=== PATIENT | female | born 1965 | race Caucasian/White ===

== ENCOUNTER 2016-09-12 18:38 | Emergency (ER) | payer OTHER, BC ==
[~2016-09-12] VITALS: Ht 160 cm; Wt 102.1 kg
[2016-09-12] MEDS ORDERED: ORPHENADRINE CITRATE 60 MG/2 ML VIAL. IM ONE (19:30)
[2016-09-12] MEDS ORDERED: PROMETHAZINE IM 25 MG/ML VIAL IM ONE (19:30)
[2016-09-12] MEDS ORDERED: HYDROMORPHONE 2 MG/ML VIAL. IM ONE (19:30)
[2016-09-12 19:52] VITALS: BP 173/75
--- NOTE | 2016-09-12 20:16 | PHYS DOC ---
Past Medical History Past Medical History: Asthma, GERD, Hypertension, Migraines Additional Past Medical Histor: BARRETTS ESOPHAGUS Past Surgical History: , Tubal ligation Additional Past Surgical Histo: HEART CATH Alcohol Use: None Drug Use: None Adult General Chief Complaint Chief Complaint: HEADACHE [facility] HPI Patient is a 51 year old female who presents with complaint of migraine. The patient has been seen and treated for similar headaches in the emergency department over the past few months. The patient states that she had been following with her neurologist at [facility] and had been receiving regular Botox injections to help with her headaches. Patient states however that her insurance has not been paying for her Botox injections in she has been having trouble with repeat headaches ever since. The patient is currently in process of transferring her care to Dr. Morris. Patient's headache started presents to 4 hours prior to arrival. Patient states that she is having nausea, right-sided headache and right-sided facial numbness which is typical of her migraines. Patient denies any other symptoms at this time. Patient's pain is 10 out of 10 currently. The patient took Zofran prior to arrival for nausea but has not taken any other medications. Review of Systems Review of Systems Constitutional: Denies fever or chills [] Eyes: Denies change in visual acuity, redness, or eye pain [] HENT: Denies nasal congestion or sore throat [] Respiratory: Denies cough or shortness of breath [] Cardiovascular: No additional information not addressed in HPI [] GI: Nausea, denies abdominal pain, bloody stools or diarrhea [] : Denies dysuria or hematuria [] Musculoskeletal: Denies back pain or joint pain [] Integument: Denies rash or skin lesions [] Neurologic: Headache, right-sided facial numbness [] Endocrine: Denies polyuria or polydipsia [] Current Medications Current Medications Current Medications Medications (Trade) Dose Ordered Sig/Lilibeth Start Time Stop Time Status Last Admin Dose Admin Hydromorphone HCl (Dilaudid) 2 mg 1X ONCE 09/12/16 19:30 09/12/16 19:31 DC 09/12/16 19:40 2 MG Orphenadrine Citrate (Norflex) 60 mg 1X ONCE 09/12/16 19:30 09/12/16 19:31 DC 09/12/16 19:40 60 MG Promethazine HCl (Phenergan Im) 25 mg 1X ONCE 09/12/16 19:30 09/12/16 19:31 DC 09/12/16 19:40 25 MG Allergies Allergies Allergies Coded Allergies Type Severity Reaction Last Updated Verified Iodinated Contrast Media - Oral and Allergy Intermediate LISTED "IV DYE" 09/12/16 Yes butorphanol Allergy Intermediate HIVES 06/14/16 Yes ketorolac Allergy Intermediate HIVES 06/14/16 Yes morphine Allergy Intermediate 09/12/16 Yes naproxen Allergy Intermediate HIVES 06/14/16 Yes Physical Exam Physical Exam Constitutional: Alert, afebrile, appears in moderate to severe discomfort. [] HENT: Normocephalic, atraumatic, bilateral external ears normal, oropharynx moist, no oral exudates, nose normal. [] Eyes: PERRLA, EOMI, conjunctiva normal, no discharge. [] Neck: Normal range of motion, no tenderness, supple, no stridor. [] Cardiovascular:Heart rate regular rhythm, no murmur [] Lungs & Thorax: Bilateral breath sounds clear to auscultation [] Abdomen: Bowel sounds normal, soft, no tenderness, no masses, no pulsatile masses. [] Skin: Warm, dry, no erythema, no rash. [] Back: No tenderness, no CVA tenderness. [] Extremities: No tenderness, no cyanosis, no clubbing, ROM intact, no edema. [] Neurologic: Alert and oriented X 3, normal motor function, normal sensory function, no focal deficits noted. [] Current Patient Data Vital Signs Vital Signs Date Time Temp Pulse Resp B/P Pulse Ox O2 Delivery O2 Flow Rate FiO2 09/12/16 19:52 96 18 173/75 99 Room Air 09/12/16 19:48 97.2 97.2 EKG EKG Not performed [] Radiology/Procedures Radiology/Procedures Not performed [] Course & Med Decision Making Course & Med Decision Making Pertinent Labs and Imaging studies reviewed. (See chart for details) I seen this patient on previous visits that her symptoms are typical of her exacerbations. The patient was given IM Dilaudid, Phenergan, and Norflex in the emergency department. On reevaluation, patient states that her pain is improving at this time and she would like to go home. The patient will be driven home by her . Advised patient to continue on her home medications to help with symptoms and follow-up closely with her primary doctor in 2-3 days. Advised return to emergency department for any worsening symptoms. Patient voiced understanding and in agreement with treatment plan. Dragon Disclaimer Dragon Disclaimer This electronic medical record was generated, in whole or in part, using a voice recognition dictation system. Departure Departure Impression: Primary Impression: Migraine Disposition: HOME, SELF-CARE Condition: IMPROVED Referrals: NON,STAFF (PCP) Patient Instructions: Migraine Headache Additional Instructions: Follow-up with your primary doctor in the next 2-3 days. Return to the emergency department for any worsening symptoms. Problem Qualifiers Primary Impression: Migraine Migraine type: periodic headache syndrome Intractability: not intractable Qualified Code: G43.C0 - Periodic headache syndromes in child or adult, not intractable SALUD CHILDS MD Sep 12, 2016 20:16
== END 2016-09-12 20:22 | disposition home or self-care (01) ==
LOC: ER 18:38
DX: G43.909 Migraine, unspecified, not intractable, without status migrainosus (principal); I10 Essential (primary) hypertension; J45.909 Unspecified asthma, uncomplicated; Z88.5 Allergy status to narcotic agent; Z88.8 Allergy status to other drugs, medicaments and biological substances; Z91.041 Radiographic dye allergy status
CPT/HCPCS: 96372; 99284; J1170; J2360; J2550

== ENCOUNTER 2016-11-03 18:08 | Emergency (ER) | payer OTHER, BC ==
[~2016-11-03] VITALS: Ht 160 cm; Wt 99.8 kg
[2016-11-03] MEDS ORDERED: PROCHLORPERAZINE 10 MG/2 ML VIAL. IV ONE (19:00)
[2016-11-03] MEDS ORDERED: DEXAMETHASONE SOD PHOS 4 MG/ML VIAL IV ONE (19:00)
[2016-11-03] MEDS ORDERED: DIPHENHYDRAMINE 50 MG/ML VIAL IVP ONE ×2 (19:00→20:30)
[2016-11-03] MEDS ORDERED: IV NORMAL SALINE 1000ML BAG 1,000 ML IV ONE (19:00)
[2016-11-03] MEDS ORDERED: LIDOCAINE 1% PF 2 ML VIAL. NEB ONE (19:00)
[2016-11-03] MEDS ORDERED: LORAZEPAM 2 MG/ML VIAL IV ONE (20:45)
[2016-11-03 21:02] VITALS: BP 182/88
[2016-11-03] MEDS ORDERED: BUTA1CAP29 PO (21:31)
--- NOTE | 2016-11-04 | ED.ADGEN ---
Past Medical History Past Medical History: GERD, Migraines Additional Past Medical Histor: BARRETTS ESOPHAGUS Past Surgical History: Appendectomy, Tonsillectomy, Tubal ligation Additional Past Surgical Histo: HEART CATH Alcohol Use: None Drug Use: None Adult General Chief Complaint Chief Complaint: HEADACHE HPI HPI Patient is a 51 year old woman, history of migraine headaches which have been previously treated with Botox, Diallo's esophagus and GERD, who presents to the emergency department with complaint of an exacerbation of her typical migraine headache. Patient states that she is currently switching providers, and is appointed to follow-up with her new neurologist in 2 and half weeks for additional Botox injections. She states that she does have medications at home that she takes to try to stave off her headaches, but she waited too long to take medication today. She is complaining of headache, nausea and facial numbness, which she states is consistent with her typical migraine symptoms. She denies any injuries, any vision changes, any weakness emesis or tingling, any fevers, chills, respiratory lower story symptoms or other deviations of her typical migraine type pain. Review of Systems Review of Systems Constitutional: Denies fever or chills. [] Eyes: Denies change in visual acuity. [] HENT: Denies nasal congestion or sore throat. [] Respiratory: Denies cough or shortness of breath. [] Cardiovascular: Denies chest pain or edema. [] GI: Denies abdominal pain, vomiting, bloody stools or diarrhea. [] Nausea. : Denies dysuria. [] Musculoskeletal: Denies back pain or joint pain. [] Integument: Denies rash. [] Neurologic: Denies focal weakness. [Migraine headache, with facial numbness. Recurrent.] Endocrine: Denies polyuria or polydipsia. [] Lymphatic: Denies swollen glands. [] Psychiatric: Denies depression or anxiety. [] Current Medications Current Medications Current Medications Medications (Trade) Dose Ordered Sig/Lilibeth Start Time Stop Time Status Last Admin Dose Admin Dexamethasone Sodium Phosphate (Decadron) 4 mg 1X ONCE 11/03/16 19:00 11/03/16 19:01 DC 11/03/16 19:55 4 MG Diphenhydramine HCl (Benadryl) 25 mg 1X ONCE 11/03/16 20:30 11/03/16 20:31 DC 11/03/16 20:20 25 MG Lidocaine HCl (Xylocaine-Mpf 1% Vial) 1 ml 1X ONCE 11/03/16 19:00 11/03/16 19:01 DC 11/03/16 19:24 1 ML Lorazepam (Ativan) 1 mg 1X ONCE 11/03/16 20:45 11/03/16 20:46 DC 11/03/16 20:47 1 MG Prochlorperazine Edisylate (Compazine) 10 mg 1X ONCE 11/03/16 19:00 11/03/16 19:01 DC 11/03/16 19:58 10 MG Sodium Chloride (Iv Sodium Chloride 0.9% 1000ml Bag) 1,000 ml @ 1,000 mls/hr 1X ONCE 11/03/16 19:00 11/03/16 19:59 DC Allergies Allergies Allergies Coded Allergies Type Severity Reaction Last Updated Verified Iodinated Contrast Media - Oral and Allergy Intermediate LISTED "IV DYE" Yes butorphanol Allergy Intermediate HIVES 11/03/16 Yes dexamethasone Allergy Intermediate ANXIETY 11/03/16 Yes ketorolac Allergy Intermediate HIVES 11/03/16 Yes morphine Allergy Intermediate 11/03/16 Yes naproxen Allergy Intermediate HIVES 11/03/16 Yes Physical Exam Physical Exam Constitutional: Well developed, well nourished, no acute distress, non-toxic appearance. [] HENT: Normocephalic, atraumatic, bilateral external ears normal, oropharynx moist, no oral exudates, nose normal. [] Eyes: PERRLA, EOMI, conjunctiva normal, no discharge. [] Neck: Normal range of motion, no tenderness, supple, no stridor. [] Cardiovascular:Heart rate regular rhythm, no murmur on S1, S2, rubs or gallops. [] Lungs & Thorax: Bilateral breath sounds clear to auscultation, no wheezing, rhonchi, rales. No chest tenderness or crepitus. [] Abdomen: Bowel sounds normal, soft, no tenderness, no masses, no pulsatile masses. [] Skin: Warm, dry, no erythema, no rash. [] Back: No tenderness, no CVA tenderness. [] Extremities: No tenderness, no cyanosis, no clubbing, ROM intact, no edema. [] Neurologic: Alert and oriented X 3, normal motor function, normal sensory function, no focal deficits noted. [] Psychologic: Affect normal, judgement normal, mood normal. [] Current Patient Data Vital Signs Vital Signs Date Time Temp Pulse Resp B/P Pulse Ox O2 Delivery O2 Flow Rate FiO2 11/03/16 21:02 86 182/88 96 Room Air 11/03/16 18:15 97.5 20 97.5 EKG EKG Not indicated. Radiology/Procedures Radiology/Procedures Not indicated. [] Course & Med Decision Making Course & Med Decision Making Pertinent Labs and Imaging studies reviewed. (See chart for details) Patient's examination is neurologically intact, she denies any changes from her baseline migraine headaches. Patient states that she usually receives hydromorphone injections for her headaches, along with Norflex. Discussed with the patient that narcotics are generally not recommended according to the neurology guidelines for treatment of migraine. I recommend that we begin with IV fluids, Compazine, Benadryl, nebulized lidocaine, and Decadron, for potential prevention and recurrence of headaches. She declined IV fluids, was agreeable with the rest of the plan. Unfortunately, it did take several attempts in order to establish IV access. Patient did receive the other medications, and began to complain of feeling anxious, and jittery, which she states believes may have happened one time previously when she was given Decadron. She is given an additional dose of Benadryl, and then a dose of Ativan , as her agitation was significant, and had begun to experience hypertension with this as well. On reevaluation, patient states that her headache is now a 2 out of 10, with a 4 being tolerable for her. Blood pressure and heart rate are improved, and she's had resolution of her nausea and anxiety. Did discuss with her the importance of following up with her neurologist, she was given a prescription for Fioricet, medication instructions and precautions, to use for her migraine headache, also given clear and detailed return instructions with which she voiced understanding and agreement. Patient was discharged home in stable condition with family with plan as above. Dragon Disclaimer Dragon Disclaimer This electronic medical record was generated, in whole or in part, using a voice recognition dictation system. Departure Impression: Primary Impression: Migraine Disposition: 01 HOME, SELF-CARE Condition: IMPROVED Scripts Butalb/Acetaminophen/Caffeine (Fioricet 50-300-40 Mg Capsule)1 Each Capsule1 Each PO PRN Q4HRS PRN MIGRAINE HEADACHE #12 CAP Prov:MANE HUSSEIN DO 11/03/16 MANE HUSSEIN DO Nov 04, 2016 00:00
== END 2016-11-03 21:37 | disposition home or self-care (01) ==
LOC: ER 18:08
DX: G43.909 Migraine, unspecified, not intractable, without status migrainosus (principal); Z88.5 Allergy status to narcotic agent; Z88.8 Allergy status to other drugs, medicaments and biological substances; Z91.041 Radiographic dye allergy status
CPT/HCPCS: 94640; 96374; 96375; 99284; J0780; J1100; J1200; J2060

== ENCOUNTER 2016-12-06 18:31 | Emergency (ER) | payer OTHER, BC ==
[~2016-12-06] VITALS: Ht 160 cm; Wt 99.8 kg
[~2016-12-06 18:31] MED LIST: BUTA1CAP29 PO
[2016-12-06 18:35] VITALS: BP 184/94
[2016-12-06] MEDS ORDERED: ORPHENADRINE CITRATE 60 MG/2 ML VIAL. IM ONE (19:00)
[2016-12-06] MEDS ORDERED: PROMETHAZINE IM 25 MG/ML VIAL IM ONE (19:00)
[2016-12-06] MEDS ORDERED: DIPHENHYDRAMINE HCL 25 MG CAPSULE PO ONE (19:00)
--- NOTE | 2016-12-06 19:06 | PHYS DOC ---
Past Medical History Past Medical History: GERD, Migraines Additional Past Medical Histor: BARRETTS ESOPHAGUS Past Surgical History: Appendectomy, Tonsillectomy, Tubal ligation Additional Past Surgical Histo: HEART CATH Alcohol Use: None Drug Use: None Adult General Chief Complaint Chief Complaint: HEADACHE HPI HPI Patient is a 51 year old female who presents with headache over the past 3 hours, gradual in onset, constant, associated with right facial numbness, exactly like prior migraines. Also states she has some bilateral ear and nasal congestion recently. Denies nausea or vomiting, photophobia, phonophobia , vision changes, dizziness, rhinorrhea, sneezing, fever or chills, tingling, weakness. States combination of phenergan, norflex, and dilaudid resolves her symptoms. Review of Systems Review of Systems Constitutional: Denies fever or chills [] Eyes: Denies change in visual acuity, redness, or eye pain [] HENT: Denies nasal congestion or sore throat [] Respiratory: Denies cough or shortness of breath [] Cardiovascular: No additional information not addressed in HPI [] GI: Denies abdominal pain, nausea, vomiting, bloody stools or diarrhea [] : Denies dysuria or hematuria [] Musculoskeletal: Denies back pain or joint pain [] Integument: Denies rash or skin lesions [] Neurologic: Denies focal weakness [] Endocrine: Denies polyuria or polydipsia [] Current Medications Current Medications Current Medications Medications (Trade) Dose Ordered Sig/Lilibeth Start Time Stop Time Status Last Admin Dose Admin Diphenhydramine HCl (Benadryl) 25 mg 1X ONCE 12/06/16 19:00 12/06/16 19:01 DC 12/06/16 19:06 25 MG Orphenadrine Citrate (Norflex) 60 mg 1X ONCE 12/06/16 19:00 12/06/16 19:01 DC 12/06/16 19:06 60 MG Promethazine HCl (Phenergan Im) 25 mg 1X ONCE 12/06/16 19:00 12/06/16 19:01 DC 12/06/16 19:06 25 MG Allergies Allergies Allergies Coded Allergies Type Severity Reaction Last Updated Verified Iodinated Contrast Media - Oral and Allergy Intermediate LISTED "IV DYE" Yes butorphanol Allergy Intermediate HIVES 11/03/16 Yes dexamethasone Allergy Intermediate ANXIETY 11/03/16 Yes ketorolac Allergy Intermediate HIVES 11/03/16 Yes morphine Allergy Intermediate 11/03/16 Yes naproxen Allergy Intermediate HIVES 11/03/16 Yes Physical Exam Physical Exam Constitutional: Well developed, well nourished, no acute distress, non-toxic appearance. [] HENT: Normocephalic, atraumatic, bilateral TMs with air congestion, oropharynx moist, no oral exudates, nose normal. [] Eyes: PERRLA, EOMI. [] Neck: Normal range of motion, supple. [] Cardiovascular:Heart rate regular rhythm [] Lungs & Thorax: Bilateral breath sounds clear to auscultation [] Abdomen: Bowel sounds normal, soft, no tenderness. [] Skin: Warm, dry, no erythema, no rash. [] Back: Normal ROM. [] Extremities: No tenderness, ROM intact. [] Neurologic: Alert and oriented X 3, normal motor function, normal sensory function, no focal deficits noted, cranial nerves II through Intact. [] Psychologic: Affect normal, judgement normal, mood normal. [] Current Patient Data Vital Signs Vital Signs Date Time Temp Pulse Resp B/P Pulse Ox O2 Delivery O2 Flow Rate FiO2 12/06/16 18:35 97.7 119 18 184/94 100 Room Air 97.7 Course & Med Decision Making Course & Med Decision Making Pertinent Labs and Imaging studies reviewed. (See chart for details) Discussed narcotics are not proper treatment for headaches as they cause rebound headaches. Offered IV medications for treatment, however she states IM dosing of meds help. She prefers phenergan and norflex; added benadryl as well. She wanted to leave after administration of these medications. Return precautions given. She understood and agrees with plan. She left prior to discharge paperwork. Dragon Disclaimer Dragon Disclaimer This electronic medical record was generated, in whole or in part, using a voice recognition dictation system. Departure Departure Impression: Primary Impression: Migraine Disposition: 01 HOME, SELF-CARE Condition: STABLE Referrals: NON,STAFF (PCP) Patient Instructions: Recurrent Migraine Headache, [id number] Additional Instructions: Follow-up with neurology clinic. Return for any concerns. Problem Qualifiers Primary Impression: Migraine Migraine type: unspecified Status migrainosus presence: without status migrainosus Intractability: not intractable Qualified Code: G43.909 - Migraine, unspecified, not intractable, without status migrainosus Leigh Ann RAMIREZ MD Dec 06, 2016 19:05
== END 2016-12-06 19:30 | disposition home or self-care (01) ==
LOC: ER 18:31
DX: G43.909 Migraine, unspecified, not intractable, without status migrainosus (principal); K21.9 Gastro-esophageal reflux disease without esophagitis; K22.70 Barrett's esophagus without dysplasia; Z90.49 Acquired absence of other specified parts of digestive tract; Z98.51 Tubal ligation status; Z88.5 Allergy status to narcotic agent; Z88.8 Allergy status to other drugs, medicaments and biological substances; Z91.041 Radiographic dye allergy status
CPT/HCPCS: 96372; 99284; J2360; J2550; Q0163

== ENCOUNTER 2017-05-29 15:21 | Emergency (ER) | payer OTHER, BC ==
[~2017-05-29] VITALS: Ht 160 cm; Wt 99.8 kg
[2017-05-29] MEDS ORDERED: KETOROLAC 60 MG/2 ML INJ. IM ONE (16:00)
[2017-05-29] MEDS ORDERED: diphenhydrAMINE HCL 25 MG CAPSULE PO ONE (16:00)
[2017-05-29] MEDS ORDERED: METOCLOPRAMIDE HCL 10 MG/2 ML VIAL. IM ONE (16:00)
[2017-05-29 16:31] VITALS: BP 143/63
--- NOTE | 2017-05-29 16:33 | PHYS DOC ---
Past Medical History Past Medical History: GERD, Migraines Additional Past Medical Histor: BARRETTS ESOPHAGUS Past Surgical History: Appendectomy, Tonsillectomy, Tubal ligation Additional Past Surgical Histo: HEART CATH Alcohol Use: None Drug Use: None Adult General Chief Complaint Chief Complaint: HEADACHE HPI HPI He 1-year-old female with a history of migraines now with gradual onset of headache typical for her over the last 1 day. Patient has mild photophobia and nausea. She states this headache is typical. She has no fevers chills sweats or shaking chills. No stiff neck. She has no productive cough or fever. No other complaints. Normal use of extremity normal speech gait and vision. Review of Systems Review of Systems Constitutional: Denies fever or chills [] Eyes: Denies change in visual acuity, redness, or eye pain [] HENT: Denies nasal congestion or sore throat [] Respiratory: Denies cough or shortness of breath [] Cardiovascular: No additional information not addressed in HPI [] GI: Denies abdominal pain, nausea, vomiting, bloody stools or diarrhea [] : Denies dysuria or hematuria [] Musculoskeletal: Denies back pain or joint pain [] Integument: Denies rash or skin lesions [] Neurologic: Denies headache, focal weakness or sensory changes [] Endocrine: Denies polyuria or polydipsia [] Current Medications Current Medications Current Medications Medications (Trade) Dose Ordered Sig/Lilibeth Start Time Stop Time Status Last Admin Dose Admin Diphenhydramine HCl (Benadryl) 50 mg 1X ONCE 05/29/17 16:00 05/29/17 16:01 DC 05/29/17 16:06 50 MG Ketorolac Tromethamine (Toradol Im) 60 mg 1X ONCE 05/29/17 16:00 05/29/17 16:07 DC Metoclopramide HCl (Reglan) 10 mg 1X ONCE 05/29/17 16:00 05/29/17 16:01 DC 05/29/17 16:05 10 MG Allergies Allergies Allergies Coded Allergies Type Severity Reaction Last Updated Verified Iodinated Contrast- Oral and IV Dye Allergy Intermediate LISTED "IV DYE" Yes butorphanol Allergy Intermediate HIVES 11/03/16 Yes dexamethasone Allergy Intermediate ANXIETY 11/03/16 Yes ketorolac Allergy Intermediate HIVES 11/03/16 Yes morphine Allergy Intermediate 11/03/16 Yes naproxen Allergy Intermediate HIVES 11/03/16 Yes Physical Exam Physical Exam Well appearing patient no acute distress mild photophobia supple neck nonfocal neuro Constitutional: Well developed, well nourished, no acute distress, non-toxic appearance. [] HENT: Normocephalic, atraumatic, bilateral external ears normal, oropharynx moist, no oral exudates, nose normal. [] Eyes: PERRLA, EOMI, conjunctiva normal, no discharge. [] Neck: Normal range of motion, no tenderness, supple, no stridor. [] Cardiovascular:Heart rate regular rhythm, no murmur [] Lungs & Thorax: Bilateral breath sounds clear to auscultation [] Abdomen: Bowel sounds normal, soft, no tenderness, no masses, no pulsatile masses. [] Skin: Warm, dry, no erythema, no rash. [] Back: No tenderness, no CVA tenderness. [] Extremities: No tenderness, no cyanosis, no clubbing, ROM intact, no edema. [] Neurologic: Alert and oriented X 3, normal motor function, normal sensory function, no focal deficits noted. [] Psychologic: Affect normal, judgement normal, mood normal. [] Current Patient Data Vital Signs Vital Signs Date Time Temp Pulse Resp B/P (MAP) Pulse Ox O2 Delivery O2 Flow Rate FiO2 05/29/17 15:31 98.3 90 18 172/89 (116) 100 Room Air 98.3 EKG EKG [] Radiology/Procedures Radiology/Procedures [] Course & Med Decision Making Course & Med Decision Making Pertinent Labs and Imaging studies reviewed. (See chart for details) Signs and symptoms consistent with gradual onset of migraine headache typical for patient. She is well-appearing with a nonfocal neurologic exam. Patient improved after treatment. No further workup or treatment indicated. Specifically CT of the head not indicated clinically. Patient feels improved and requests discharge. She agrees with outpatient follow-up and strict return precautions given. [] Dragon Disclaimer Dragon Disclaimer This electronic medical record was generated, in whole or in part, using a voice recognition dictation system. Departure Departure Impression: Primary Impression: Migraine headache Disposition: 01 HOME, SELF-CARE Condition: IMPROVED Referrals: NO PCP (PCP) Patient Instructions: Migraine Headache Additional Instructions: You've been suffering from a migraine headache a known recurrent diagnosis for you. Take Zofran as needed as previously prescribed. Take ibuprofen 800 mg every 6 hours as well as Tylenol if needed. Follow-up with your doctor in the morning. LUCY GONZALEZ MD May 29, 2017 16:33
== END 2017-05-29 16:40 | disposition home or self-care (01) ==
LOC: ER 15:21
DX: G43.909 Migraine, unspecified, not intractable, without status migrainosus (principal); K21.9 Gastro-esophageal reflux disease without esophagitis; Z88.6 Allergy status to analgesic agent; Z88.8 Allergy status to other drugs, medicaments and biological substances; Z91.041 Radiographic dye allergy status
CPT/HCPCS: 96372; 99283; J2765; Q0163